=== PATIENT | male | born 1960 | race Caucasian/White ===

== ENCOUNTER 2019-04-05 07:29 | Day surgery (SDC) | payer OTHER ==
[2019-04-05] MEDS ORDERED: LIDOCAINE 2% (SDV) 5 ML INJ (09:39)
[2019-04-05] MEDS ORDERED: PROPOFOL 40 ML (09:39)
== END 2019-04-05 12:10 | disposition home or self-care (01) ==
LOC: GIL 07:29
DX: K51.90 Ulcerative colitis, unspecified, without complications (principal); K63.5 Polyp of colon; K64.8 Other hemorrhoids; R19.5 Other fecal abnormalities; E11.9 Type 2 diabetes mellitus without complications
CPT/HCPCS: 45380; 82962; 88305

== ENCOUNTER 2019-05-11 08:18 | Emergency (ER) | payer OTHER ==
[2019-05-11 09:47] LABS: ADD MAN DIFF? NO
[2019-05-11 09:50] LABS: BASOPHIL # 0.1 10^3/ul (0.0-0.1); BASOPHILS % 0.7 % (0.0-2.0); EOSINOPHILS # 0.1 10^3/ul (0.0-0.5); EOSINOPHILS % 1.1 % (0.0-7.0); HEMATOCRIT 36.5 % (42.0-52.0); HEMOGLOBIN 12.3 g/dl (14.0-18.0); LYMPHOCYTES # 2.3 10^3/ul (0.8-2.9); LYMPHOCYTES % 27.8 % (15.0-51.0); MEAN CORPUSCULAR HGB CONC 33.7 g/dl (32.0-37.0); MEAN CORPUSCULAR VOLUME 86.1 fl (82.0-101.0); MEAN PLATELET VOLUME 9.8 fl (7.4-10.4); MONOCYTE # 1.3 10^3/ul (0.3-0.9); MONOCYTES % 15.7 % (0.0-11.0); NEUTROPHIL # 4.4 10^3/ul (1.6-7.5); NEUTROPHILS % 54.1 % (39.0-77.0); PLATELET COUNT 493 10^3/UL (140-415); RED BLOOD COUNT 4.24 10^6/ul (4.70-6.10); RED CELL DISTRIBUTION WIDTH 13.2 % (11.5-14.5)
[2019-05-11 09:50] LABS: WHITE BLOOD COUNT 8.2 10^3/ul (4.8-10.8)
[2019-05-11] MEDS: DICYCLOMINE 20 MG INJ IM (09:55)
[2019-05-11] MEDS: SOD CHLORIDE 0.9% 1,000 ML IV (09:56)
[2019-05-11 10:10] LABS: ALANINE AMINOTRANSFERASE 36 IU/L (13-69); ALBUMIN 2.7 g/dl (3.3-4.9); ALBUMIN/GLOBULIN RATIO 0.72; ALKALINE PHOSPHATASE 94 IU/L (42-121); ANION GAP 12 (5-13); ASPARTATE AMINO TRANSFERASE 32 IU/L (15-46); BILIRUBIN,INDIRECT 1.1 mg/dl (0-1.1); BILIRUBIN,TOTAL 1.1 mg/dl (0.2-1.3); BLOOD UREA NITROGEN 9 mg/dl (7-20); CALCIUM 8.3 mg/dl (8.4-10.2); CARBON DIOXIDE 22 mmol/L (21-31); CHLORIDE 99 mmol/L (97-110); CREATININE 0.83 mg/dl (0.61-1.24); Estimated GFR > 60 mL/min (>60); GLUCOSE 233 mg/dl (70-220); LIPASE 96 U/L (23-300); POTASSIUM 3.2 mmol/L (3.5-5.1); SODIUM 133 mmol/L (135-144); TOTAL PROTEIN 6.4 g/dl (6.1-8.1)
== END 2019-05-11 11:00 | disposition home or self-care (01) ==
LOC: E/R 08:18
DX: R19.7 Diarrhea, unspecified (principal); R10.84 Generalized abdominal pain; E11.65 Type 2 diabetes mellitus with hyperglycemia; Z79.4 Long term (current) use of insulin
CPT/HCPCS: 36415; 80053; 83690; 85025; 87045; 96372; 99284-25